=== PATIENT | male | born 1965 | race Caucasian/White ===

== ENCOUNTER → 2020-11-19 | Outpatient (CLI) | payer OTHER ==
[~2020-11-19] MED LIST: CITALOPRAM HBR40 MG PO
== END ==
LOC: LAB 08:29
PROVIDERS: ATTEND Orthopaedic Surgery Sports Medicine
DX: Z01.812 Encounter for preprocedural laboratory examination (principal); Z20.822 Contact with and (suspected) exposure to COVID-19

== ENCOUNTER → 2020-11-24 | Day surgery (SDC) | payer OTHER ==
[~2020-11-24] VITALS: Ht 170.2 cm; Wt 77.6 kg
--- NOTE | ~2020-11-24 | O ---
[facility] [place] [address] OPERATIVE REPORT Name: DINA ROBLERO Room #: REG [facility] M.Sharri.#: [id number] Admission: 11/24/20 Attend Phys: Ludin Melo MD Discharge: Date of : 67 Report #: [id number] THIS REPORT FOR: cc: Travis De La Torre III, MD, III,Travis Melo,Ludin Somers MD ~ DATE OF SERVICE: 11/24/2020 SERVICE: Orthopedics. FACILITY: [facility]. SURGEON: Ludin Melo MD. INVESTMENT ANALYST: None. PREOPERATIVE DIAGNOSES: 1. Right knee pain. 2. Right knee synovitis. 3. Right knee loose body. POSTOPERATIVE DIAGNOSES: 1. Right knee pain. 2. Right knee synovitis. 3. Right knee loose body. PROCEDURES: Right knee arthroscopy with extensive synovectomy and loose body removal. COMPLICATIONS: None. DRAINS: None. SPECIMENS: Synovial biopsy. FINDINGS: 1. Extensive synovitis throughout the knee with the frondular appearance. 2. Mild patellofemoral joint chondromalacia, treated with limited chondroplasty. 3. Normal medial and lateral compartments. HISTORY: The patient is a 55-year-old gentleman with a history of persistent progressive right knee pain that had been present for quite some time. He has had swelling associated with this as well with some persistent pressure. He had an MRI, which was suggestive of a proliferative synovitic process in the knee. [facility] [employer] [place] [address] OPERATIVE REPORT Name: DINA ROBLERO Room #: REG [facility]..#: [id number] Admission: 11/24/20 Attend Phys: Ludin Melo MD Discharge: Date of : 67 Report #: [id number] We also noted the loose body within the knee and discussed surgical treatment options. He wished to move forward in that direction after the risks, benefits, alternatives, and indications were discussed. Risks include but not limited to pain, bleeding, infection, injury to nerves or blood vessels, persistent pain despite surgical intervention, failure of any repairs, progression of any preexisting chondral injury, stiffness, need for further surgery, recurrence of the problem as well as complications related to anesthesia. Despite these risks, she wished to proceed. PROCEDURE IN DETAIL: After right lower extremity was correctly identified in the preoperative holding area as the operative extremity, the patient was taken to the operating room where general anesthesia was induced without complication. She was padded appropriately. Prophylactic antibiotics were administered at appropriate time. Tourniquet was applied to right leg. Right lower extremity was then prepped and draped in standard sterile fashion. Timeout procedure was performed. Esmarch was used. Tourniquet inflated to 250 mmHg. Standard anterolateral viewing portal was established followed by anteromedial working portal. Diagnostic arthroscopy revealed the above findings. I used a grasper to obtain multiple tissue biopsies of the synovium and we sent this for permanent pathology. There was no evidence of infection. There was a thick piece of synovial tissue that was floating in the suprapatellar pouch that corresponded with the loose body that we had noted on the preoperative imaging. This was excised as well. The synovitic process itself had an orange/rust staining appearance to it and it was multiple finger-like fronds throughout the knee in all compartments including the suprapatellar, anterior, medial and lateral gutters and the intercondylar space as well as along the menisci posterior horns and proceeded with a systematic synovectomy working proximally first and then down to the patellofemoral space then along the medial compartment and the medial gutter and then into the intercondylar notch, I made sure to pass the scope in the posterior aspect of the knee between the PCL and the medial femoral condyle and then used the shaver on the top of the posterior horn of the meniscus as well as on the underside. The cartilage and the meniscus on the medial compartment were normal. The synovectomy was then completed, working through the notch as well. The ACL was stained with this orangish color and the shaver was used to debride all of this until the ACL with edges of the condyles, menisci and the capsule were restored to a normal color, placed the leg in the [id number]-pt-wydz position. There was a significant amount of yellow synovial fluid in this area. This was lavaged with the shaver and continued with the synovectomy. After this was all completed and the lateral gutter was debrided as well, I then placed the scope in the anteromedial portal and the working portal was made anterolaterally and then worked on the anterior horn soft tissues. The MRI had suggested a cyst adjacent to the anterior horn of the lateral meniscus, so I have resected the soft tissue as well to decompress cyst in this region, completed the debridement in the lateral compartment and then placed the knee into extension and worked further on the [facility] [address] [place] [address] OPERATIVE REPORT Name: DINA ROBLERO Room #: REG [facility] Isa#: [id number] Admission: 11/24/20 Attend Phys: Ludin Melo MD Discharge: Date of : 67 Report #: [id number] suprapatellar space. Because of the extensive nature of this, the synovium was not assessable for the two traditional portals completely, so I made a third portal, proximal lateral portal and completed the synovectomy in the suprapatellar pouch as well as the gutters with this portal as well. Of note, there was also a medial synovial plica. This was resected with the shaver in the standard fashion without difficulty. The arthroscopic effusion was drained, the instruments were removed. A total of 30 mL of local anesthetic was injected in the soft tissues around the knee and then the portal sites were closed. Sterile dressing was applied. The patient was awakened from anesthesia and taken to recovery room in stable condition. No complications. All counts were correct. By: [id number] 1803 Ludin Melo MD /nt
[2020-11-24 14:02] VITALS: BP 139/93
--- NOTE | 2020-11-27 18:08 | PATH ---
[facility] [address] [place] [address] PATHOLOGY RPT PROCEDURE Name: DINA WHITE Room #: REG [facility] M.R.#: [id number] Admission: 11/24/20 Date of : 67 Discharge: Report #: [id number] Path Case #: [id number] [facility] Accession Number: [id number] . 01 Material submitted: . PART A: knee - RIGHT KNEE SYNOVIUM. Modifiers: right PART B: knee - RIGHT KNEE LOOSE BODY. Modifiers: right . 01 Clinical history: . LOOSE BODY IN KNEE RIGHT KNEE, CHONDROMALACIA, ARTICULAR CARTILAGE DISORDER KNEE PAIN RIGHT ANTERIOR . 01 Frozen section diagnosis: . . /QMS . 02 Diagnosis: A. Synovium, right knee synovium, biopsy: - Moderate chronic inflammation with lymphocytes, rare plasma cells as well as abundant hemosiderin-laden macrophages, consistent with reparative changes. - Reactive synovial hyperplasia. . B. Right knee synovium, biopsy: - Moderate chronic inflammation associated with abundant giant cells and hemosiderin-laden macrophages. - Reactive synovial hyperplasia. (IUV:miri; 11/27/2020) QMS 11/27/2020 1310 Local . 02 Comment: The specimen submitted as "right knee synovium" and fresh tissue submitted as "right knee synovium" (questionable tissue) appear morphologically similar. Overall, the tissue show reparative changes associated with reactive synovial hyperplasia. Please correlate clinically. (IUV:miri; 11/27/2020) . 02 Electronically signed: . Jesusita Schroeder MD, Pathologist NPI- [id number] . 01 Gross description: . A. The specimen is received in formalin, labeled "Dina White ., right knee synovium". Received are several segments of pale do tissue measuring 2.5 x 0.7 x 0.2 cm in aggregate dimensions. The specimen is filtered and entirely submitted in [place] [address] PATHOLOGY RPT PROCEDURE Name: DINA WHITE Room #: REG [facility]..#: [id number] Admission: 11/24/20 Date of : 67 Discharge: Report #: [id number] Path Case #: [id number] B. The specimen is received fresh, labeled "Dina Collinsnaye Mariscal., right knee synovium". Received are multiple segments of orange-do tissue measuring 1.5 x 0.6 x 0.1 cm in aggregate dimensions. The specimen is filtered and entirely submitted in cassette B1. (CAA; 11/26/2020) QAC/QAC 11/26/2020 1313 Local . 02 Pathologist provided ICD-10: M65.9 . 02 CPT . 198027, [id number] Specimen Comment: A courtesy copy of this report has been sent to [phone] Specimen Comment: Report sent to Performed at: [address], [place] [id number] MD Luis Miguel Dinh MD Phone: [phone] Performed at: [address] [id number] MD Jesusita Schroeder MD Phone: [phone]
== END | disposition home or self-care (01) ==
LOC: PRE 08:30 → EDSTATUS 08:35 → OR 13:07
PROVIDERS: ATTEND Orthopaedic Surgery Sports Medicine
DX: M25.561 Pain in right knee (principal); M65.861 Other synovitis and tenosynovitis, right lower leg; M23.41 Loose body in knee, right knee; M22.41 Chondromalacia patellae, right knee; G47.30 Sleep apnea, unspecified; F41.9 Anxiety disorder, unspecified; F17.210 Nicotine dependence, cigarettes, uncomplicated; Z98.890 Other specified postprocedural states; Z79.899 Other long term (current) drug therapy
CPT/HCPCS: 50010; 50101; 50405; 51320; 56527; 57103; 58589; 58680; 62110; 62900; 70005

== ENCOUNTER 2021-07-12 15:41 | Emergency (ER) | payer OTHER ==
[~2021-07-12] VITALS: Ht 170.2 cm; Wt 77.1 kg
[2021-07-12 16:26] LABS: CREATININE 0.8 mg/dL (0.7-1.3); POTASSIUM 4.2 mmol/L (3.5-5.1)
[2021-07-12 16:27] LABS: URINE BILIRUBIN NEGATIVE (Negative); URINE BLOOD NEGATIVE (Negative); URINE CLARITY CLEAR; URINE COLOR YELLOW; URINE GLUCOSE-RANDOM* NEGATIVE (Negative); URINE KETONES NEGATIVE (Negative); URINE LEUKOCYTES-REFLEX NEGATIVE (Negative); URINE NITRITE-REFLEX NEGATIVE (Negative); URINE PROTEIN (DIPSTICK) NEGATIVE (Negative); URINE UROBILINOGEN 0.2 E.U./dl (0.2-1.0)
[2021-07-12 16:32] LABS: TOTAL BILIRUBIN 0.4 mg/dL (0.2-1.0); TOTAL PROTEIN 7.5 g/dL (6.4-8.2)
[2021-07-12 17:13] LABS: ABSOLUTE NEUTROPHILS 2.4 thou/uL (1.4-8.2); BASOPHILS 1.2 % (0.0-2.0); EOSINOPHILS 2.7 % (0.0-3.0); HEMOGLOBIN 13.8 gm/dL (14.0-18.0); MCH 30.1 pg (26.0-34.0); MCHC 33.8 g/dL (28.0-37.0); MCV 89.3 fL (80.0-100.0); MONOCYTES 8.8 % (1.0-8.0); PLATELET COUNT 294 thou/uL (150-400); POLYS 44.3 % (36.0-66.0); RBC 4.59 mil/uL (4.50-6.00); RDW 13.7 % (10.5-14.5); WBC 5.5 thou/uL (4.0-11.0)
[2021-07-12 18:54] VITALS: BP 128/74
== END 2021-07-12 18:56 | disposition home or self-care (01) ==
LOC: ER 15:41
PROVIDERS: Emergency Medicine
DX: K80.50 Calculus of bile duct without cholangitis or cholecystitis without obstruction (principal); R10.31 Right lower quadrant pain; F41.9 Anxiety disorder, unspecified; F17.200 Nicotine dependence, unspecified, uncomplicated; Z79.899 Other long term (current) drug therapy

== ENCOUNTER → 2021-10-14 | Day surgery (SDC) | payer OTHER ==
[~2021-10-14] VITALS: Ht 170.2 cm; Wt 77.1 kg
[~2021-10-14] MED LIST changes: +HYDROCODON-ACE1 EAC7 PO
--- NOTE | ~2021-10-14 | O ---
[facility] [place] [address] OPERATIVE REPORT Name: DINA ROBLERO Room #: REG [facility].Sharri.#: [id number] Admission: 10/14/21 Attend Phys: Garrick Martin MD Discharge: Date of : 67 Report #: [id number] THIS REPORT FOR: cc: Travis De La Torre III, MD, III,Travis Martin,Garrick Jimenez MD ~ cc: Travis De La Torre III, MD DATE OF SERVICE: 10/14/2021 PREOPERATIVE DIAGNOSES: 1. Cholecystitis with cholelithiasis. 2. Right mid abdominal pain. 3. Umbilical hernia. POSTOPERATIVE DIAGNOSES: 1. Cholecystitis with cholelithiasis. 2. Right mid abdominal pain. 3. Umbilical hernia. PROCEDURES PERFORMED: 1. Laparoscopic cholecystectomy with cholangiogram. 2. Laparoscopic appendectomy. 3. Repair of umbilical hernia. SURGEON: Garrick Martin MD ANESTHESIA: General anesthesia. COMPLICATIONS: None. ESTIMATED BLOOD LOSS: 5 mL HISTORY: The patient has had 6 months of abdominal pain. The pain has been located in the right abdomen about the umbilical level. It does go to his back. The patient had a visit to the Emergency Room in June. He was found to have multiple gallstones. His appendix looked fairly long with some dense material in the appendix. PROCEDURE NOTE: After the abdomen was prepped and draped in sterile fashion, timeout was performed. The patient received preoperative Ancef 2 gram and then Flagyl 500. 0.25% Marcaine was used to anesthetize the skin. Curvilinear incision was made infraumbilically. Fascia was identified. The patient had a small fascial defect of the umbilicus. This was about 5 mm in size. The fascial edges were trimmed off and cleaned off and 0 Vicryl suture placed on the fascial edges. Veress needle was then placed through peritoneum. Abdominal [facility] [address] [place] [address] OPERATIVE REPORT Name: DINA ROBLERO Room #: [facility]#: [id number] Admission: 10/14/21 Attend Phys: Garrick Martin MD Discharge: Date of : 67 Report #: [id number] cavity was insufflated with CO2. After creating pneumoperitoneum, a 12 mm trocar was placed intraabdominally under visualization. No harm to underlying tissue. A 5 mm trocar was placed in the midclavicular line about two fingerbreadths below the costal margin. The patient was placed in Trendelenburg position, right side tilted up. The appendix was identified. The tip of the appendix did appear to be mildly dilated and stiff. I decided to go ahead and do a laparoscopic appendectomy. Right across the umbilicus, the ascending colon was examined and the ascending colon was not inflamed. I am not able to see the retroperitoneal portion of it, where there is a diverticulum present that is seen on CT scan. The transverse colon did contain some firm stool and the sigmoid colon also contained firm stool. Diverticulum that are not inflamed are identified in the sigmoid colon. A second 5 mm trocar was placed about an inch and a half below the umbilicus. The appendix was isolated without difficulty. There is adhesion inferiorly. This was easily divided with Harmonic scalpel. The mesoappendix was also divided with Harmonic scalpel. The proximal part of the appendix appears to be smaller and softer than the tip. The appendix was isolated at the cecum and the Endo-AZALEA was used to staple off the appendix at the base. Irrigation was performed. No bleeding was identified. The patient was then placed in the reverse Trendelenburg position with the right side continually tilted up. Another lateral 5 mm trocar was placed and the epigastric 5 mm trocar was placed. Gallbladder was identified. The gallbladder actually is dilated, elongated versus a contracted gallbladder was seen on the CT scan. The peritoneum was dissected free laterally and then medially. The cystic duct was identified. The cystic duct was noted to be elongated. Clip was placed in junction of cystic duct. Opening was made in the cystic duct. No stones were in the cystic duct. Cholangiogram catheter was placed. Fluoroscopic cholangiogram was obtained. The common duct is normal in appearance. Catheter was then removed. The cystic duct was then clipped x2 proximally and then divided. Cystic artery was then found fairly high up on the gallbladder and this was isolated, clipped x2 proximally, one distally and then divided. There is a small lateral posterior branch that was also clipped x2. Gallbladder was freed from the liver bed without difficulty. Gallbladder was placed in a specimen bag and the gallbladder was retrieved through the infraumbilical port. Gallbladder was opened off the field, contained numerous blackish stone that are about 7-8 mm in size and then there were multiple cholesterol material that are 3-4 mm in size, some are even floating in the bile. Liver bed was checked, hemostasis obtained. Clips were intact. The irrigation was performed, irrigation was aspirated out. Trocars were removed under visualization. CO2 was evacuated. The umbilical fascia defect was closed and 0 PDS suture was placed in two separate interrupted fashion. Skin was irrigated. Skin was closed with 5-0 PDS. Steri-Strip, Band-Aids applied. The umbilical skin was tacked down to the fascia with 5-0 PDS before the skin [address] [place] [address] OPERATIVE REPORT Name: DINA ROBLERO Room #: REG [facility] M.R.#: [id number] Admission: 10/14/21 Attend Phys: Garrick Martin MD Discharge: Date of : 67 Report #: [id number] closure. The patient tolerated the procedure well and was taken to the recovery room. By: 51 14 Garrick Martin MD /nt
[2021-10-14 09:37] VITALS: BP 114/66
--- NOTE | 2021-10-14 12:44 | EKG ---
[place] [address] [facility] [employer] [place] [place] [address] ELECTROCARDIOGRAM REPORT Name: DINA ROBLERO Room #: REG [facility]#: [id number] Admission: 10/14/21 Attend Phys: Garrick Martin MD Discharge: Date of : 67 Report #: [id number] [facility] Test Date: 2021-10-14 Test Time: 09:11:02 Pat Name: DINA ROBLERO Department: Room: Gender: Parts Finisher: : 1965 Requested By: Merissa Fu Order Number: [id number] MD: Marlo Melton Measurements Intervals [place] Rate: 58 P: -11 MS: 174 QRS: -37 QRSD: 112 T: 7 QT: 418 QTc: 411 Interpretive Statements Sinus rhythm Incomplete right bundle branch block Compared to ECG 09/08/2013 18:26:07 Left anterior fascicular block no longer present T-wave abnormality no longer present Possible ischemia no longer present Electronically Signed On 10-14-2021 12:43:48 INSTRUMENT LENS INSPECTOR by Marlo Melton [email or web address] <ELECTRONICALLY SIGNED> By: Marlo Melton MD 10/14/21 1243 0911 0911 Marlo Melton MD /EPI
[2021-10-14 13:02] VITALS: BP 114/66
== END | disposition home or self-care (01) ==
LOC: OR 07:42
PROVIDERS: ATTEND Surgery
DX: K80.18 Calculus of gallbladder with other cholecystitis without obstruction (principal); R10.11 Right upper quadrant pain; K42.9 Umbilical hernia without obstruction or gangrene; F41.9 Anxiety disorder, unspecified; F17.210 Nicotine dependence, cigarettes, uncomplicated; G47.30 Sleep apnea, unspecified; Z98.890 Other specified postprocedural states; Z79.899 Other long term (current) drug therapy; Z20.822 Contact with and (suspected) exposure to COVID-19
CPT/HCPCS: 50010; 50101; 50411; 50555; 50739; 51489; 52265; 53307; 53310; 53312; 53335; 55245; 55317; 56462; 56525; 56526; 58574; 58867; 58911; 62110; 62900; 70005